=== PATIENT | female | born 1980 | race Caucasian/White ===

== ENCOUNTER 2017-08-28 22:25 | Inpatient (IN) | payer MEDICAID ==
[2017-08-29 02:34] LABS: ADD MAN DIFF? NO
[2017-08-29 02:36] LABS: WHITE BLOOD COUNT 15.6 10^3/ul (4.8-10.8)
[2017-08-29 02:36] LABS: BASOPHIL # 0.1 10^3/ul (0.0-0.1); BASOPHILS % 0.3 % (0.0-2.0); EOSINOPHILS # 0.3 10^3/ul (0.0-0.5); EOSINOPHILS % 1.7 % (0.0-7.0); HEMATOCRIT 36.9 % (37.0-47.0); LYMPHOCYTES # 1.4 10^3/ul (0.8-2.9); LYMPHOCYTES % 9.2 % (15.0-51.0); MEAN CORPUSCULAR HEMOGLOBIN 28.9 pg (29.0-33.0); MEAN CORPUSCULAR HGB CONC 35.2 g/dl (32.0-37.0); MEAN PLATELET VOLUME 11.3 fl (7.4-10.4); MONOCYTE # 0.7 10^3/ul (0.3-0.9); MONOCYTES % 4.2 % (0.0-11.0); NEUTROPHIL # 13.1 10^3/ul (1.6-7.5); PLATELET COUNT 180 10^3/UL (140-415)
[2017-08-29 02:50] LABS: ADD UMIC YES; UR ASCORBIC ACID NEGATIVE (NEGATIVE); UR BACTERIA FEW /HPF (NONE SEEN); UR BILIRUBIN (Dip) NEGATIVE (NEGATIVE); UR BLOOD (Dip) NEGATIVE (NEGATIVE); UR CLARITY CLEAR (CLEAR); UR COLOR YELLOW (YELLOW); UR GLUCOSE (Dip) NEGATIVE (NEGATIVE); UR KETONES (Dip) NEGATIVE (NEGATIVE); UR LEUKOCYTE ESTERASE (Dip) TRACE Leu/ul (NEGATIVE); UR NITRITE (Dip) NEGATIVE (NEGATIVE); UR RBC 0 /HPF (0-5); UR SQUAMOUS EPITHELIAL CELL FEW /HPF (FEW); UR TOTAL PROTEIN (Dip) NEGATIVE (NEGATIVE); UR UROBILINOGEN (Dip) NEGATIVE (NEGATIVE); UR WBC 0 /HPF (0-5)
[2017-08-29 02:54] LABS: ALANINE AMINOTRANSFERASE 76 IU/L (13-69); ALBUMIN 3.6 g/dl (3.3-4.9); ALKALINE PHOSPHATASE 152 IU/L (42-121); ANION GAP 13 (8-16); ASPARTATE AMINO TRANSFERASE 92 IU/L (15-46); BILIRUBIN,INDIRECT 0.4 mg/dl (0-1.1); BILIRUBIN,TOTAL 0.4 mg/dl (0.2-1.3); BLOOD UREA NITROGEN 8 mg/dl (7-20); CALCIUM 9.2 mg/dl (8.4-10.2); CARBON DIOXIDE 22 mmol/L (21-31); CHLORIDE 108 mmol/L (97-110); CREATININE 0.58 mg/dl (0.44-1.00); GLUCOSE 98 mg/dl (70-220); POTASSIUM 4.1 mmol/L (3.5-5.1); SODIUM 139 mmol/L (135-144); TOTAL PROTEIN 7.2 g/dl (6.1-8.1); URIC ACID 5.3 mg/dl (3.1-7.9)
[2017-08-29 03:04] LABS: PARTIAL THROMBOPLASTIN TIME 30.4 Sec (25.0-35.0)
[2017-08-29] MEDS ORDERED: CITRIC ACID/SODIUM CITRATE 15 ML CUP (03:04)
[2017-08-29] MEDS: CITRIC ACID/SODIUM CITRATE 15 ML CUP PO (03:07)
[2017-08-29 04:45] LABS: INR 0.94; PROTIME 12.7 Sec (11.9-14.9)
[2017-08-29] MEDS ORDERED: LACTATED RINGER'S 1,000 ML IV (05:50)
[2017-08-29] MEDS ORDERED: LACTATED RINGER'S 500 ML IV ×2 (05:50→06:14)
[2017-08-29] MEDS ORDERED: CARBOPROST 250 MCG INJ IM ×3 (06:00→23:30)
[2017-08-29] MEDS ORDERED: BUTORPHANOL 2 MG INJ IV ×4 (06:00→06:30)
[2017-08-29] MEDS ORDERED: HYDROCODONE/APAP (5/325) TAB PO ×3 (06:00→23:30)
[2017-08-29] MEDS ORDERED: OXYTOCIN 30 UNITS/LR 500 ML IV ×7 (06:00→23:30)
[2017-08-29] MEDS ORDERED: LIDOCAINE 1% (MPF) 30 ML INJ INJ ×2 (06:00→06:30)
[2017-08-29] MEDS: LACTATED RINGER'S 1,000 ML IV ×2 (06:00→08:07)
[2017-08-29] MEDS ORDERED: MISOPROSTOL 200 MCG TAB PR ×3 (06:00→23:30)
[2017-08-29] MEDS ORDERED: METHYLERGONOVINE 0.2 MG INJ IM ×3 (06:00→23:30)
[2017-08-29] MEDS: AMPICILLIN 2 GM/NS (PMX) 100 ML IV ×2 (06:30→08:08)
[2017-08-29] MEDS ORDERED: IBUPROFEN 600 MG TAB PO (06:30)
[2017-08-29 08:22] LABS: HEPATITIS B SURFACE ANTIGEN NEGATIVE (NEGATIVE)
[2017-08-29] MEDS: OXYTOCIN 30 UNITS/LR 500 ML IV ×3 (08:40→17:19)
[2017-08-29] MEDS: BETAMET NA PHOS/AC(6 MG/ML) 5ML INJ IM ×2 (09:58→21:45)
[2017-08-29] MEDS: MAGNESIUM SULFATE 4 GM/100 ML 100 ML IV (10:25)
[2017-08-29] MEDS ORDERED: AMPICILLIN 1 GM/NS (PMX) 50 ML IV (10:30)
[2017-08-29] MEDS: MAGNESIUM SULFATE 20 GM/500 ML 500 ML IV ×3 (10:53→21:56)
[2017-08-29] MEDS: AMPICILLIN 1 GM/NS (PMX) 50 ML IV ×2 (11:58→15:56)
[2017-08-29 16:54] LABS: MAGNESIUM 5.3 mg/dl (1.7-2.5)
[2017-08-29] MEDS: IBUPROFEN 600 MG TAB PO ×2 (19:44→23:32)
[2017-08-29 22:05] LABS: RAPID PLASMA REAGIN NONREACTIVE (NR)
[2017-08-29 22:44] LABS: MAGNESIUM 5.1 mg/dl (1.7-2.5)
[2017-08-29 22:54] LABS: AMPHETAMINE/METHAMPHETAMINE Negative (NEGATIVE); BARBITURATES Negative (NEGATIVE); BENZODIAZEPINES Negative (NEGATIVE); CANNABINOIDS Negative (NEGATIVE); COCAINE Negative (NEGATIVE); OPIATES Negative (NEGATIVE)
[2017-08-29] MEDS: LACTATED RINGER'S 500 ML IV (23:30)
[2017-08-29] MEDS ORDERED: ZOLPIDEM 5 MG TAB PO (23:30)
[2017-08-29] MEDS ORDERED: DIBUCAINE 1% 30 GM OINT PR (23:30)
[2017-08-29] MEDS ORDERED: BENZOCAINE 20% 56 ML SPRAY TOP (23:30)
[2017-08-29] MEDS ORDERED: WITCH HAZEL/GLYCERIN PAD PR (23:30)
[2017-08-29] MEDS: LACTATED RINGER'S 1,000 ML IV* (23:49)
[2017-08-30 04:02] LABS: ADD MAN DIFF? NO
[2017-08-30 04:03] LABS: WHITE BLOOD COUNT 18.7 10^3/ul (4.8-10.8)
[2017-08-30 04:03] LABS: BASOPHILS % 0.2 % (0.0-2.0); EOSINOPHILS % 0.1 % (0.0-7.0); HEMATOCRIT 35.6 % (37.0-47.0); HEMOGLOBIN 12.9 g/dl (12.0-16.0); LYMPHOCYTES # 1.5 10^3/ul (0.8-2.9); LYMPHOCYTES % 7.9 % (15.0-51.0); MEAN CORPUSCULAR HEMOGLOBIN 29.3 pg (29.0-33.0); MEAN CORPUSCULAR HGB CONC 36.2 g/dl (32.0-37.0); MEAN CORPUSCULAR VOLUME 80.7 fl (82.0-101.0); MEAN PLATELET VOLUME 11.3 fl (7.4-10.4); MONOCYTE # 1.2 10^3/ul (0.3-0.9); MONOCYTES % 6.2 % (0.0-11.0); NEUTROPHIL # 15.9 10^3/ul (1.6-7.5); NEUTROPHILS % 84.9 % (39.0-77.0); PLATELET COUNT 183 10^3/UL (140-415); RED BLOOD COUNT 4.41 10^6/ul (4.20-5.40); RED CELL DISTRIBUTION WIDTH 13.9 % (11.5-14.5)
[2017-08-30 04:31] LABS: ALANINE AMINOTRANSFERASE 79 IU/L (13-69); ALBUMIN 3.3 g/dl (3.3-4.9); ALBUMIN/GLOBULIN RATIO 0.97; ALKALINE PHOSPHATASE 136 IU/L (42-121); ANION GAP 12 (8-16); ASPARTATE AMINO TRANSFERASE 74 IU/L (15-46); BILIRUBIN,INDIRECT 0.1 mg/dl (0-1.1); BILIRUBIN,TOTAL 0.1 mg/dl (0.2-1.3); BLOOD UREA NITROGEN 12 mg/dl (7-20); CALCIUM 7.7 mg/dl (8.4-10.2); CARBON DIOXIDE 23 mmol/L (21-31); CHLORIDE 107 mmol/L (97-110); CREATININE 0.69 mg/dl (0.44-1.00); GLUCOSE 110 mg/dl (70-220); POTASSIUM 4.6 mmol/L (3.5-5.1); SODIUM 137 mmol/L (135-144); TOTAL PROTEIN 6.7 g/dl (6.1-8.1)
[2017-08-30 05:34] LABS: MAGNESIUM 5.5 mg/dl (1.7-2.5)
[2017-08-30] MEDS: IBUPROFEN 600 MG TAB PO ×5 (06:00→23:35)
[2017-08-30] MEDS: LACTATED RINGER'S 500 ML IV (06:10)
[2017-08-30] MEDS: MAGNESIUM SULFATE 20 GM/500 ML 500 ML IV (08:09)
[2017-08-30] MEDS: MAGNESIUM HYDROXIDE 30ML CUP PO ×2 (09:10→20:52)
[2017-08-30] MEDS: SENNA/DOCUSATE NA (8.6MG/50MG) TAB PO ×2 (09:10→20:52)
[2017-08-30] MEDS: CEFAZOLIN 1 GM/50 ML (PMX) 50 ML IVPB ×2 (09:11→16:31)
[2017-08-30] MEDS: INFLUENZA VIRUS VACCINE 0.5 ML (DISPENSING) IM* (09:12)
[2017-08-30 12:08] LABS: MAGNESIUM 5.9 mg/dl (1.7-2.5)
[2017-08-30 12:52] LABS: RUBELLA ANTIBODY - IGG 9.63 index; RUBELLA ANTIBODY - IGM <20.00 AU/mL
[2017-08-30 13:06] LABS: ADD UMIC YES; UR ASCORBIC ACID NEGATIVE (NEGATIVE); UR BILIRUBIN (Dip) NEGATIVE (NEGATIVE); UR BLOOD (Dip) 3+ mg/dL (NEGATIVE); UR CLARITY CLEAR (CLEAR); UR COLOR STRAW (YELLOW); UR GLUCOSE (Dip) NEGATIVE (NEGATIVE); UR KETONES (Dip) NEGATIVE (NEGATIVE); UR LEUKOCYTE ESTERASE (Dip) TRACE Leu/ul (NEGATIVE); UR NITRITE (Dip) NEGATIVE (NEGATIVE); UR RBC > 182 /HPF (0-5); UR SPECIFIC GRAVITY (Dip) 1.006 (1.003-1.030); UR SQUAMOUS EPITHELIAL CELL FEW /HPF (FEW); UR TOTAL PROTEIN (Dip) NEGATIVE (NEGATIVE); UR UROBILINOGEN (Dip) NEGATIVE (NEGATIVE); UR WBC 14 /HPF (0-5)
[2017-08-30] MEDS: LACTATED RINGER'S 1,000 ML IV* (14:13)
[2017-08-30] MEDS: LANOLIN 7 GM TUBE TOP (16:31)
[2017-08-30] MEDS: HYDROCODONE/APAP (5/325) TAB PO (18:59)
[2017-08-31] MEDS: CEFAZOLIN 1 GM/50 ML (PMX) 50 ML IVPB ×3 (00:21→16:07)
[2017-08-31] MEDS: IBUPROFEN 600 MG TAB PO ×3 (05:41→18:00)
[2017-08-31 08:25] LABS: ADD MAN DIFF? NO
[2017-08-31 08:35] LABS: WHITE BLOOD COUNT 14.5 10^3/ul (4.8-10.8)
[2017-08-31 08:35] LABS: BASOPHIL # 0.1 10^3/ul (0.0-0.1); BASOPHILS % 0.3 % (0.0-2.0); EOSINOPHILS # 0.4 10^3/ul (0.0-0.5); EOSINOPHILS % 2.6 % (0.0-7.0); HEMATOCRIT 32.9 % (37.0-47.0); HEMOGLOBIN 11.6 g/dl (12.0-16.0); LYMPHOCYTES # 2.7 10^3/ul (0.8-2.9); LYMPHOCYTES % 18.8 % (15.0-51.0); MEAN CORPUSCULAR HEMOGLOBIN 29.2 pg (29.0-33.0); MEAN CORPUSCULAR HGB CONC 35.3 g/dl (32.0-37.0); MEAN CORPUSCULAR VOLUME 82.9 fl (82.0-101.0); MEAN PLATELET VOLUME 10.6 fl (7.4-10.4); MONOCYTE # 0.8 10^3/ul (0.3-0.9); MONOCYTES % 5.5 % (0.0-11.0); NEUTROPHIL # 10.4 10^3/ul (1.6-7.5); NEUTROPHILS % 71.8 % (39.0-77.0); PLATELET COUNT 177 10^3/UL (140-415); RED BLOOD COUNT 3.97 10^6/ul (4.20-5.40); RED CELL DISTRIBUTION WIDTH 14.5 % (11.5-14.5)
[2017-08-31 08:54] LABS: ALANINE AMINOTRANSFERASE 59 IU/L (13-69); ALBUMIN 3.3 g/dl (3.3-4.9); ALBUMIN/GLOBULIN RATIO 1.06; ALKALINE PHOSPHATASE 102 IU/L (42-121); ANION GAP 10 (8-16); ASPARTATE AMINO TRANSFERASE 38 IU/L (15-46); BILIRUBIN,INDIRECT 0.1 mg/dl (0-1.1); BILIRUBIN,TOTAL 0.1 mg/dl (0.2-1.3); BLOOD UREA NITROGEN 16 mg/dl (7-20); CALCIUM 8.4 mg/dl (8.4-10.2); CARBON DIOXIDE 30 mmol/L (21-31); CHLORIDE 103 mmol/L (97-110); CREATININE 0.76 mg/dl (0.44-1.00); GLUCOSE 68 mg/dl (70-220); POTASSIUM 4.3 mmol/L (3.5-5.1); SODIUM 139 mmol/L (135-144); TOTAL PROTEIN 6.4 g/dl (6.1-8.1)
[2017-08-31] MEDS: SENNA/DOCUSATE NA (8.6MG/50MG) TAB PO (09:00)
[2017-08-31] MEDS: MAGNESIUM HYDROXIDE 30ML CUP PO (09:00)
[2017-08-31] MEDS: DIPHTH/TET/ACEL PERTUSS (ADULT) 0.5 ML VIAL IM* (09:09)
[2017-08-31] MEDS: MEASLES,MUMPS,RUBELLA VACCINE INJ SC* (09:10)
[2017-08-31] MEDS: VARICELLA VACCINE LIVE/PF 1,350 UNIT/0.5 ML ML SC* (09:10)
== END 2017-08-31 19:25 | disposition home or self-care (01) | DRG 775 ==
LOC: OBT 22:25 → L-D 22:27 → PP1 08-29 22:37
PROC: 10E0XZZ Delivery of Products of Conception, External Approach (ICD-10-PCS; principal; 2017-08-29)
PROC: 4A1HXCZ Monitoring of Products of Conception, Cardiac Rate, External Approach (ICD-10-PCS; 2017-08-29)
DX: O13.4 Gestational [pregnancy-induced] hypertension without significant proteinuria, complicating childbirth (principal); Z37.0 Single live birth; Z3A.36 36 weeks gestation of pregnancy
CPT/HCPCS: 76815; 76816; 80053; 80307; 81001; 83735; 84560; 85025; 85384; 85610; 85730; 86592; 86762; 86850; 86900; 86901; 87086; 87340; 90686